=== PATIENT | female | born 2000 ===

== ENCOUNTER 2020-05-13 04:34 | Inpatient (IN) | payer OTHER ==
[2020-05-13] MEDS ORDERED: LACTATED RINGERS 1,000 ML ONE (09:15)
[2020-05-13] MEDS ORDERED: BUTORPHANOL 2 MG/1 ML INJ ONE (09:28)
[2020-05-13 09:33] LABS: Hematocrit 36.5 % (30.3-42.9); Hemoglobin 12.9 gm/dl (10.1-14.3); Mean Corpuscular HGB Conc 36 % (30-34); Mean Corpuscular Volume 86 fl (79-97); Platelet Count 273 K/mm3 (140-440); Red Blood Count 4.23 M/mm3 (3.65-5.03)
[2020-05-13] MEDS ORDERED: TERBUTALINE 1 MG/1 ML INJ SUB-Q PRN (10:00)
[2020-05-13] MEDS ORDERED: OXYTOCIN DRIP 30 UNITS/500 ML BAG IV SCH (10:00)
[2020-05-13] MEDS ORDERED: ONDANSETRON 4 MG/2 ML INJ IV PRN ×2 (10:00→18:14)
[2020-05-13] MEDS ORDERED: ACETAMINOPHEN 325 MG TAB PO PRN (10:00)
[2020-05-13] MEDS ORDERED: MINERAL OIL 30 ML ORAL LIQD PO PRN (10:00)
[2020-05-13] MEDS ORDERED: fentaNYL 100 MCG/2 ML INJ IV PRN (10:00)
[2020-05-13] MEDS ORDERED: LIDOCAINE (2%) 20 MG/1 ML VIAL 20 ML MDV INFILTRATI SCH (10:00)
[2020-05-13] MEDS ORDERED: ePHEDrine SULFATE 50 MG/1 ML INJ IV PRN ×2 (10:00→10:42)
[2020-05-13] MEDS ORDERED: BUTORPHANOL 2 MG/1 ML INJ IV PRN ×2 (10:00)
[2020-05-13] MEDS ORDERED: NALOXONE 0.4 MG/1 ML INJ IV PRN (10:00)
[2020-05-13] MEDS: LACTATED RINGERS 1,000 ML IV SCH ×2 (10:11→11:02)
[2020-05-13] MEDS ORDERED: NALOXONE 2 MG/2 ML INJ IV PRN (10:42)
[2020-05-13] MEDS ORDERED: DEXMEDETOMIDINE 200 MCG/2 ML VIAL IV ONE (10:45)
--- NOTE | 2020-05-13 10:54 | Anesthesia Consultation ---
Anesthesia Consult and Med Hx Date of service: 05/13/20 - Airway Anesthetic Teeth Evaluation: Chipped ROM Head & Neck: Adequate Mental/Hyoid Distance: Adequate Mallampati Class: Class II Intubation Access Assessment: Probably Good - Pulmonary Exam CTA: Yes - Cardiac Exam Cardiac Exam: RRR - Pre-Operative Health Status ASA Pre-Surgery Classification: ASA3 Proposed Anesthetic Plan: Epidural - Pulmonary Hx Smoking: Yes Hx Asthma: No COPD: No Hx Pneumonia: No - Cardiovascular System Hx Hypertension: No - Central Nervous System Hx Seizures: No Hx Psychiatric Problems: Yes (BORDERLINE PERSONALITY DISORDER DX 15YO) - Endocrine Hx Renal Disease: No Hx End Stage Renal Disease: No Hx Hypothyroidism: No Hx Hyperthyroidism: No - Hematic Hx Anemia: No Hx Sickle Cell Disease: No - Other Systems Hx Alcohol Use: No Hx Substance Use: Yes (Marijuana) Hx Obesity: Yes
--- NOTE | 2020-05-13 10:55 | Progress Note ---
Labor Epidural - Labor Epidural Start Time: 10:46 Stop Time: 10:54 Performed by:: DESMOND LOUISE Procedure: Patient is requesting epidural for labor pain. H&P, and labs reviewed. Procedure explained, questions answered, consent obtained. Patient in sitting position with blood pressure cuff and pulse ox on and working. Timeout performed immediately before start of procedure. Sterile betadine prep/drape. 3 mL 1% lidocaine skin wheal at L[3]-L[4]. 18-gauge Touhy epidural needle advanced to [id number] with saline at [7] cm. 27-gauge spinal needle advanced until clear, free-flowing CSF. Intrathecal dexmedetomidine [5] mcg administered and needle removed. Epidural catheter advanced to [12] cm, negative aspiration for blood and csf, negative test dose 3 ml 1.5% lidocaine with epinephrine. Sterile steri-strips and tegaderm applied, followed by tape reinforcement. Patient tolerated procedure well. Kay DE LA CRUZ
[2020-05-13] MEDS ORDERED: fentaNYL-BUPIV 2 MCG/ML-0.125% 200 MCG/100 ML BAG EPIDURAL SCH (11:00)
--- NOTE | 2020-05-13 12:37 | History and Physical Report ---
History of Present Illness Date of examination: 05/13/20 Date of admission: 05/13/20 09:15 Chief complaint: "I'm in pain" History of present illness: 19 y/o female presented to [facility] OB triage with c/o uc times several hours. She initiated her pnc at [facility] at 21.4 wks. 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 Denies social or surg hx. Reports a family hx of diabetes and HTN. GBS is neg. Pt was found to be in active labor and was admitted to L&D. Past History Past Medical History: other (BORDERLINE PERSONALITY DISORDER WITH SELF MUTILATION AND DEPRESSION) Past Surgical History: no surgical history Family/Genetic History: diabetes, hypertension Social history: no significant social history - Obstetrical History Expected Date of Delivery: 05/13/20 Actual Gestation: 40 Week(s) 0 Day(s) : 1 Medications and Allergies Allergies Allergy/AdvReac Type Severity Reaction Status Date / Time No Known Allergies Allergy Unverified 05/13/20 04:56 Home Medications Medication Instructions Recorded Confirmed Last Taken Type Vit-Fe Fumar-FA [ 1 tab PO DAILY 05/13/20 05/13/20 1 Day Ago History Vitamin] ~05/12/20 Active Meds: Active Medications Acetaminophen (Tylenol) 650 mg PO Q4H PRN PRN Reason: Pain, Mild (1-3) Butorphanol Tartrate (Stadol) 1 mg IV Q2H PRN PRN Reason: Pain, Moderate(4-6) LABOR PAIN Butorphanol Tartrate (Stadol) 2 mg IV Q2H PRN PRN Reason: Pain , Severe (7-10) Ephedrine Sulfate (Ephedrine Sulfate) 10 mg IV Q2M PRN PRN Reason: Hypotension Fentanyl (Sublimaze) 100 mcg IV Q2H PRN PRN Reason: Pain,Severe (7-10) LABOR PAIN Oxytocin/Sodium Chloride (Pitocin/Ns 30 Unit/500ml) 30 units in 500 mls @ 2 mls/hr IV TITR JUAN; Protocol Lactated Ringer's (Lactated Ringers) 1,000 mls @ 125 mls/hr IV DIRECT JUAN Last Admin: 05/13/20 11:02 Dose: 125 mls/hr Documented by: Oxytocin/Sodium Chloride (Pitocin/Ns 20 Unit/1000ml Drip) 20 units in 1,000 mls @ 125 mls/hr IV DIRECT JUAN Fentanyl/Bupivacaine/Sodium Chlor (Fentanyl-Bupiv 2 Mcg/Ml-0.125%) 200 mcg in 100 mls @ 12 mls/hr EPIDURAL TITR JAUN; Protocol Last Admin: 05/13/20 12:03 Dose: 12 mls/hr Documented by: Lidocaine (Xylocaine 2%) 20 ml INFILTRATI ONCE JUAN Stop: 05/14/20 09:59 Mineral Oil (Mineral Oil) 30 ml PO QHS PRN PRN Reason: Constipation Multivitamins/Iron/Calcium ( Vitamin) 1 each PO DAILY JUAN Naloxone HCl (Naloxone) 0.2 mg IV Q5M PRN PRN Reason: Respiratory sedation Ondansetron HCl (Zofran) 4 mg IV Q8H PRN PRN Reason: Nausea And Vomiting Terbutaline Sulfate (Brethine) 0.25 mg SUB-Q ONCE PRN PRN Reason: Hyperstimulation/Hypertonicity Review of Systems All systems: negative Breasts: normal Genitourinary: normal appearance Rectal Exam: deferred Psychiatric: other (Borderline personality disorder with depression and self mutilation) - Vital Signs Vital signs: Vital Signs Pulse Pulse Ox 110 H 98 05/13/20 04:55 05/13/20 04:55 Temp Pulse Resp BP Pulse Ox 97.4 F L 82 18 121/76 100 05/13/20 12:06 05/13/20 12:20 05/13/20 12:06 05/13/20 12:17 05/13/20 12:20 - Physical Exam Breasts: Positive: normal Cardiovascular: Regular rate Lungs: Positive: Clear to auscultation Abdomen: Positive: normal appearance, soft, normal bowel sounds, other (gravid) Genitourinary (Female): Positive: normal external genitalia, normal perenium Vulva: both: normal Vagina: Positive: normal moisture Uterus: Positive: normal size, normal contour, other (gravid) Adnexa: both: normal Anus/Rectum: Positive: normal perianal skin Extremities: Positive: normal - Obstetrical FHR: auscultation normal, category 1 Uterine Contraction Monitor Mode: External Cervical Dilatation: 9 Cervical Effacement Percentage: 100 station: -1 Uterine Contraction Frequency (min): q3-5 Uterine Contraction Pattern: Regular Uterine Tone Measurement Phase: Resting Uterine Contraction Intensity: Strong/Firm Results Result Diagrams: 05/13/20 09:05 Abnormal lab results 05/13/20 Range/Units 09:05 WBC 15.9 H (4.5-11.0) K/mm3 MCHC 36 H (30-34) % All other labs normal. Assessment and Plan A: IUP@ 4O wks Borderline personality disorder with self mutilation GBS neg P: Admit to L&D Continuous monitoring Pain med/Epidural prn SS consult Anticipate - Patient Problems (1) Term Current Visit: Yes Status: Acute (2) Borderline personality disorder Current Visit: Yes Status: Acute (3) History of self mutilation Current Visit: Yes Status: Acute
[2020-05-13] MEDS: OXYTOCIN 20 UNIT/1000ML DRIP 20 UNITS/1,000 ML BAG IV SCH ×2 (13:18→14:12)
[2020-05-13] MEDS ORDERED: MAGNESIUM HYDROXIDE (MOM) ORAL LIQD UDC PO PRN (18:14)
[2020-05-13] MEDS ORDERED: diphenhydrAMINE 25 MG CAP PO PRN (18:14)
[2020-05-13] MEDS ORDERED: PROMETHAZINE 25 MG TAB PO PRN (18:14)
[2020-05-13] MEDS ORDERED: WITCH HAZEL/ GLYCERIN PAD TP PRN (18:14)
[2020-05-13] MEDS ORDERED: PROMETHAZINE 25 MG RECT SUPP PR PRN (18:14)
[2020-05-13] MEDS ORDERED: LANOLIN/ZINC/DIMETHICONE (LANSINOH) 7 GM TP PRN (18:14)
--- NOTE | 2020-05-13 18:27 | Procedure Note ---
OB Delivery Note - Vaginal Delivery presentation: vertex Delivery position: OA Intrapartum events: none Delivery induction: none Delivery augmentation: rupture of membranes, pitocin Delivery monitor: external FHT, external uterine Route of delivery: Delivery placenta: spontaneous Delivery cord: nuchal cord, 3 umbilical vessels Episiotomy: none Delivery laceration: 2nd degree, other (perineal lac) Delivery repair: vicryl Anesthesia: epidural Delivery comments: Called to rm and found pt fully dilated and pushing. of a viable live male in OA position. Spontaneous delivery of head. Loose nuchal cord x 1 was reduced over 's head and 's shoulders were delivered with ease. Baby was placed on mom's chest while being dried and stimulated. Delayed cord clamping x 90 sec then cord was clamped x 2 and cut by mom's cousin. Afterwards was given to awaiting NICU nurse for an evaluation. 8/9. Spontaneous delivery of intact placenta with CVX3 noted. FF@ U1 with fundal massage and IV Pitocin. Exploration of tears revealed a 2nd degree perineal laceration which was repaired with 3-[address]-1. EBL 100cc. Mom and baby stable. wt 7 lbs 1.653 oz. - Infant A at 1 minute: 8 at 5 minutes: 9 Infant Gender: Male (EFW 7LB 1.653 OZ)
[2020-05-13] MEDS: IBUPROFEN 600 MG TAB PO SCH (23:32)
[2020-05-14] MEDS: IBUPROFEN 600 MG TAB PO SCH ×2 (05:38→16:09)
[2020-05-14] MEDS ORDERED: PRENATAL VIT27-FE FUMARATE-FOLIC ACID VIT TAB PO SCH (10:00)
--- NOTE | 2020-05-14 11:20 | Progress Note ---
Assessment and Plan - Patient Problems (1) Status post normal vaginal delivery Current Visit: Yes Status: Acute Plan to address problem: Continue routine PP orders Anticipate d/c home tomorrow F/U at office in 6 wks for routine PP visit Subjective - Subjective Date of service: 05/14/20 Principal diagnosis: S/P ; PPD#1 Interval history: See admission H & P; OB delivery summary and PP progress notes Patient reports: appetite normal, voiding normally, pain well controlled, flatus, ambulating normally [place]: doing well, nursing well Objective - Vital Signs Latest vital signs: Vital Signs Temp Pulse Resp BP BP Pulse Ox 05/14/20 08:33 97.5 F L 94 H 20 115/82 99 05/14/20 00:30 98.6 F 74 18 101/71 05/13/20 20:10 98.6 F 105 H 18 120/81 94 05/13/20 16:25 98.5 F 103 H 20 113/76 05/13/20 15:15 96 H 18 109/63 100 05/13/20 15:11 96 H 109/63 05/13/20 15:10 109 H 100 05/13/20 15:05 87 98 05/13/20 15:00 74 99 05/13/20 14:57 88 109/61 05/13/20 14:56 111 H 94 05/13/20 14:55 92 H 99 05/13/20 14:50 95 H 98 05/13/20 14:45 79 100 05/13/20 14:41 93 H 102/65 05/13/20 14:40 86 99 05/13/20 14:35 95 H 99 05/13/20 14:30 90 98 05/13/20 14:26 86 102/63 05/13/20 14:25 88 16 109/61 99 05/13/20 14:20 107 H 98 05/13/20 14:17 89 109/63 05/13/20 14:15 92 H 99 05/13/20 14:14 100 H 108/62 05/13/20 14:10 88 18 108/63 99 05/13/20 14:05 91 H 100 05/13/20 14:00 93 H 100 05/13/20 13:55 103 H 18 124/60 124/60 100 05/13/20 13:54 74 89 05/13/20 13:50 91 H 99 05/13/20 13:45 110 H 100 05/13/20 13:40 107 H 100 05/13/20 13:35 98 H 100 05/13/20 13:33 98.7 F 90 18 119/68 100 05/13/20 13:32 90 119/68 05/13/20 13:30 86 100 05/13/20 13:25 88 99 05/13/20 13:20 120 H 99 05/13/20 13:15 122 H 97 05/13/20 13:10 124 H 100 05/13/20 13:05 129 H 100 05/13/20 13:02 74 110/76 05/13/20 13:00 69 100 05/13/20 12:55 83 100 05/13/20 12:50 75 100 05/13/20 12:47 90 107/75 05/13/20 12:45 81 100 05/13/20 12:40 86 100 05/13/20 12:35 86 100 05/13/20 12:32 85 113/77 05/13/20 12:30 79 100 05/13/20 12:25 89 100 05/13/20 12:20 82 100 05/13/20 12:17 88 121/76 05/13/20 12:15 80 98 05/13/20 12:10 72 97 05/13/20 12:06 97.4 F L 74 18 111/75 05/13/20 12:05 81 98 05/13/20 12:03 80 111/75 05/13/20 12:00 78 99 05/13/20 11:55 87 98 05/13/20 11:50 79 96 05/13/20 11:47 102 H 105/61 05/13/20 11:45 86 98 05/13/20 11:40 80 97 05/13/20 11:35 91 H 97 05/13/20 11:32 96 H 104/59 05/13/20 11:30 89 97 05/13/20 11:25 86 97 05/13/20 11:20 86 97 Intake and Output 05/13/20 05/14/20 05/14/20 23:59 07:59 15:59 Intake Total 800 300 360 Output Total 800 Balance 0 300 360 Intake: Oral 560 360 Intake, Free Water 240 300 Output: Urine 800 Void 800 Other: Total, Intake Amount 200 360 Total, Output Amount 800 # Voids Void 1 1 - Exam Breasts: Present: normal Cardiovascular: Present: Regular rate Lungs: Present: Normal air movement Abdomen: Present: soft Uterus: Present: firm, fundal height below umbilicus (U-2) Extremities: Present: edema (slight edema in bilat ankles) Deep Tendon Reflex Grade: Normal +2
--- NOTE | 2020-05-14 11:23 | Discharge Summary ---
Providers - Providers Date of Admission: 05/13/20 09:15 Date of discharge: 05/15/20 (1200) Attending physician: ABIDA MCGEE 05/14/20 06:12 Consult to Case Management [CONS] Routine Services Needed at Discharge: Academic Physician Notified:: [phone] busy will have day shift call Phone number called:: [phone] Was contact made?: No Time called:: 06:15 Additional Physician Instructions: hx: depression , bipolar and self mutilation [place] depression scale =9 Primary care physician: ABIDA MCGEE Hospitalization Reason for admission: active labor Delivery: Episiotomy: none Laceration: none Other procedures: none complications: none Discharge diagnosis: IUP at term delivered baby: male Hospital course: See admission H & P; OB delivery summary and PP progress notes Condition at discharge: Good Disposition: DC-01 TO HOME OR SELFCARE - Discharge Diagnoses (1) Status post normal vaginal delivery Status: Acute (2) Borderline personality disorder Status: Acute (3) History of self mutilation Status: Acute (4) Single teen parent Status: Acute Plan - Provider Discharge Summary Activity: routine, no sex for 6 weeks, no heavy lifting 4 weeks, no strenuous exercise Diet: other (Iron rich diet) Instructions: routine Additional instructions: [] Smoking cessation referral if applicable(refer to patient education folder for contact #) [] Refer to [facility] Booklet Call your doctor immediately for: * Fever > 100.5 * Heavy vaginal bleeding ( >1 pad per hour) * Severe persistent headache * Shortness of breath * Reddened, hot, painful area to leg or breast - Follow up plan Follow up: ABIDA MCGEE MD [Primary Care Provider] - 6 Weeks
[2020-05-14 14:18] LABS: Hemoglobin 10.9 gm/dl (10.1-14.3)
[2020-05-14] MEDS: PRENATAL VIT27-FE FUMARATE-FOLIC ACID VIT TAB PO SCH (16:09)
--- NOTE | 2020-05-14 17:03 | Post Anesthesia Evaluation ---
- Post Anesthesia Evaluation Patient Participated: Yes Airway Patent: Yes Stable Respiratory Function: Yes Nausea/Vomiting: No Temp > 96.8F: Yes Pain Manageable: Yes Adequeate Hydration: Yes Anesthesia Complications: No Block Receding Appropriately: Yes
[2020-05-15] MEDS: IBUPROFEN 600 MG TAB PO SCH ×3 (01:13→12:34)
[2020-05-15] MEDS ORDERED: DIPHtheria,PERTUSSIS(ACELL),TETANUS VACCINE/PF 0.5 ML VIAL IM ONE ×2 (06:00→10:15)
[2020-05-15] MEDS: PRENATAL VIT27-FE FUMARATE-FOLIC ACID VIT TAB PO SCH (10:27)
[2020-05-15 16:57] VITALS: BP 121/81
== END 2020-05-15 18:10 | disposition home or self-care (01) | DRG 775 ==
LOC: TRG 04:34 → APU 04:39 → LD 04:43 → TRG 09:15 → OB 16:33
PROVIDERS: ADMIT Obstetrics & Gynecology; ATTEND Obstetrics & Gynecology
PROC: 10E0XZZ Delivery of Products of Conception, External Approach (ICD-10-PCS; principal; 2020-05-14)
PROC: 0KQM0ZZ Repair Perineum Muscle, Open Approach (ICD-10-PCS; 2020-05-14)
PROC: 3E0R3BZ Introduction of Anesthetic Agent into Spinal Canal, Percutaneous Approach (ICD-10-PCS; 2020-05-14)
PROC: 00HU33Z Insertion of Infusion Device into Spinal Canal, Percutaneous Approach (ICD-10-PCS; 2020-05-14)
PROC: 3E0134Z Introduction of Serum, Toxoid and Vaccine into Subcutaneous Tissue, Percutaneous Approach (ICD-10-PCS; 2020-05-14)
DX: O99.344 Other mental disorders complicating childbirth (principal); O70.1 Second degree perineal laceration during delivery; F60.3 Borderline personality disorder; Z20.828 Contact with and (suspected) exposure to other viral communicable diseases; F32.9 Major depressive disorder, single episode, unspecified; Z37.0 Single live birth; Z3A.40 40 weeks gestation of pregnancy; Z91.5 Personal history of self-harm; Z23 Encounter for immunization; Z83.3 Family history of diabetes mellitus; Z82.49 Family history of ischemic heart disease and other diseases of the circulatory system
CPT/HCPCS: 36415; 85014; 85018; 85027; 86850; 86900; 86901; 90471; 90715; G0378; J0595; J2590; J3490; J7120; U0003-CS